=== PATIENT | female | born 1945 | race Caucasian/White ===

== ENCOUNTER 2019-11-04 10:33 | Outpatient (CLI) | payer MEDICARE, BC | END 2019-11-04 10:34 | disposition critical access hospital (66) | LOC: EMS 10:33 | PROVIDERS: ATTEND Surgery | DX: R07.9 Chest pain, unspecified (principal) | CPT/HCPCS: A0425; A0427 ==

== ENCOUNTER 2019-11-04 11:04 | Emergency (ER) | payer MEDICARE, BC ==
[2019-11-04 11:49] LABS: BASOPHILS # (AUTO) 0.1 10^3/uL (0.0-0.1); BASOPHILS % (AUTO) 1.1 %; EOSINOPHILS # (AUTO) 0.2 10^3/uL (0.0-0.7); EOSINOPHILS % (AUTO) 3.6 %; HGB - HEMOGLOBIN 13.1 g/dL (12.0-16.0); LYMPHOCYTES # (AUTO) 1.2 10^3/uL (1.5-3.5); MEAN CORPUSCULAR VOLUME 96.7 fL (81.0-99.0); MEAN PLATELET VOLUME 10.4 fL (7.9-10.8); MONOCYTES # (AUTO) 0.5 10^3/uL (0.0-1.0); MONOCYTES % (AUTO) 9.6 %; NEUTROPHILS # (AUTO) 3.6 10^3/uL (1.5-6.6); NEUTROPHILS % (AUTO) 64.3 %; PLT - PLATELET COUNT 161 10^3/uL (130-450); RED BLOOD COUNT 4.23 10^6/uL (4.20-5.40); RED CELL DISTRIBUTION WIDTH 12.7 % (12.0-15.0); WHITE BLOOD COUNT 5.5 x10^3/uL (4.8-10.8)
--- NOTE | 2019-11-04 11:54 | XRAY Report ---
Reason: Chest pain Procedure Date: 11/04/2019 Accession Number: [id number] / [id number] Procedure: XR - Chest 1 View X-Ray CPT Code: 32124 Final Report FULL RESULT: EXAM: CHEST RADIOGRAPHY EXAM DATE: 11/04/2019 11:43 AM. CLINICAL HISTORY: Chest pain. COMPARISON: CHEST 2 VIEW PA/LAT 06/01/2013 10:13 PM. TECHNIQUE: 1 view. FINDINGS: Lungs/Pleura: No focal opacities evident. No pleural effusion. No pneumothorax. Mediastinum: Within exam limitations, the cardiomediastinal contour is normal. Other: None. IMPRESSION: No focal consolidation. RADIA
[2019-11-04 12:03] LABS: ALBUMIN 3.5 g/dL (3.2-5.5); ALBUMIN/GLOBULIN RATIO 1.1 (1.0-2.2); BILIRUBIN,TOTAL 0.7 mg/dL (0.2-1.0); CREATININE 0.7 mg/dL (0.4-1.0); TOTAL PROTEIN 6.8 g/dL (6.7-8.2)
--- NOTE | 2019-11-04 12:39 | ED Physician Documentation ---
PD HPI CHEST PAIN - Stated complaint Stated Complaint: CP - Chief complaint Chief Complaint: Cardiac - History obtained from History obtained from: Patient - History of Present Illness Timing - onset: Today (Awoke at 0730; with intermittent brief non-radiating pain. Mild. Left chest; Its very brief, lasting seconds at a time. Nonexertional. Not associated with shortness of breath, back pain, jaw pain, or arm pain. There is no nausea, shortness of breath. She has had a cough recently but it is nonproductive and not severe. She traveled to [place] and got back a little over a week ago. No associated chest pain then, no leg pain or pedal edema. No history of DVT or PE. 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 Psych: None Musculoskeletal: Osteoarthritis Derm: None, Eczema, Rosacea - Past Surgical History Past Surgical History: Yes Ortho: Hip replacement, Knee replacement, Rotator cuff repair - Present Medications Home Medications: Ambulatory Orders Medication Instructions Recorded Confirmed Celecoxib [CeleBREX] 0 mg DAILY 11/04/19 11/04/19 Fluticasone [Flonase] 0 spray 11/04/19 - Allergies Allergies/Adverse Reactions: Allergies Allergy/AdvReac Type Severity Reaction Status Date / Time No Known Drug Allergies Allergy Verified 11/04/19 11:15 - Social History Does the pt smoke?: No Smoking Status: Never smoker Does the pt drink ETOH?: No Does the pt have substance abuse?: No - Immunizations Immunizations are current?: Yes - POLST Patient has POLST: No PD ED PE NORMAL - Vitals Vital signs reviewed: Yes - General General: Alert and oriented X 3, No acute distress - HEENT HEENT: PERRL, EOMI - Neck Neck: Supple, no meningeal sign, No bony TTP - Cardiac Cardiac: RRR (with occ ectopy), No murmur - Respiratory Respiratory: No respiratory distress, Clear bilaterally - Abdomen Abdomen: Normal bowel sounds, Soft, Non distended - Back Back: No CVA TTP, No spinal TTP - Derm Derm: Normal color, Warm and dry - Extremities Extremities: No edema, No calf tenderness / cord - Neuro Neuro: Alert and oriented X 3, Normal speech - Psych Psych: Normal mood, Normal affect Results - Vitals Vitals: Vital Signs - 24 hr 11/04/19 11/04/19 11:07 14:09 Temperature 36.8 C Heart Rate 58 L 56 L Respiratory 16 10 L Rate Blood Pressure 139/85 H 106/77 O2 Saturation 97 97 Oxygen O2 Source Room air - EKG (time done) 1116 Rate: Rate (enter#) (61) Rhythm: NSR (with pvcs) Davey: LAD Intervals: Normal AR QRS: Normal Ischemia: Normal ST segments. No: ST elevation c/w ischemia, ST depression Computer interpretation: Agree with computer - Labs Labs: Laboratory Tests 11/04/19 11/04/19 11/04/19 11:36 11:36 11:36 WBC 5.5 RBC 4.23 Hgb 13.1 Hct 40.9 MCV 96.7 MCH 31.0 MCHC 32.0 RDW 12.7 Plt Count 161 MPV 10.4 Neut # (Auto) 3.6 Lymph # (Auto) 1.2 L [place] # (Auto) 0.5 Eos # (Auto) 0.2 Baso # (Auto) 0.1 Absolute Nucleated RBC 0.00 Nucleated RBC % 0.0 D-Dimer Sodium 138 Potassium 3.6 Chloride 102 Carbon Dioxide 25 Anion Gap 11.0 BUN 14 Creatinine 0.7 Estimated GFR (MDRD) 82 L Glucose 105 H Calcium 9.0 Total Bilirubin 0.7 AST 16 ALT 13 Alkaline Phosphatase 46 Troponin I High Sens 5.3 Total Protein 6.8 Albumin 3.5 Globulin 3.3 Albumin/Globulin Ratio 1.1 Lipase 32 11/04/19 11/04/19 11:36 14:06 WBC RBC Hgb Hct MCV MCH MCHC RDW Plt Count MPV Neut # (Auto) Lymph # (Auto) [place] # (Auto) Eos # (Auto) Baso # (Auto) Absolute Nucleated RBC Nucleated RBC % D-Dimer < 200.0 L Sodium Potassium Chloride Carbon Dioxide Anion Gap BUN Creatinine Estimated GFR (MDRD) Glucose Calcium Total Bilirubin AST ALT Alkaline Phosphatase Troponin I High Sens 5.7 Total Protein Albumin Globulin Albumin/Globulin Ratio Lipase - Rads (name of study) 1v chest Radiology: EMP read contemporaneously (neg) PD MEDICAL DECISION MAKING - ED course ED course: This is a 74-year-old woman with a nonischemic EKG presents with intermittent brief nonexertional chest pain for the last 6 hours. It is happening frequently. She has PVCs, but she knows what those feel like and this is not similar to that. At the time of my evaluation a troponin has been done and negative as has a chest x-ray and other basic labs. Given the recent travel I will add on a d-dimer. We will perform a second troponin at a 2-hour interval. Departure - Departure Disposition: 01 Home, Self Care Clinical Impression: Atypical chest pain Condition: Good Record reviewed to determine appropriate education?: Yes Instructions: ED Chest Pain Atypical Unkn Cause Comments: We saw you today for chest pain, the pattern of it did not sound like your heart, your EKG was unremarkable except for PVCs which you already knew about. We did 2 high-sensitivity troponins a couple of hours apart and both were normal and a d-dimer was negative ruling out a blood clot. Return for new or worse symptoms, follow-up with your physician regardless for further evaluation and treatment.
[2019-11-04 14:09] VITALS: BP 106/77
== END 2019-11-04 15:00 | disposition home or self-care (01) ==
LOC: EDUNIT# → ED 11:04
DX: R07.89 Other chest pain (principal); I49.3 Ventricular premature depolarization; I10 Essential (primary) hypertension
CPT/HCPCS: 36415; 71045; 80053; 83690; 84484; 85025; 85379; 93005; 99284

== ENCOUNTER 2022-09-11 17:46 | Emergency (ER) | payer MEDICARE, BC ==
--- NOTE | 2022-09-11 18:53 | XRAY Report ---
PROCEDURE: Chest 1 View X-Ray INDICATIONS: fever s/p hip replacement TECHNIQUE: One view of the chest was acquired. COMPARISON: None. FINDINGS: Surgical changes and devices: 11/04/2019. Lungs and pleura: No pleural effusions or pneumothorax. Subtle ill-defined opacities are seen scatte red in right lower lung field. Mildly increased bronchovascular markings in bilateral hilar region ar e seen. Mediastinum: Mediastinal contours appear normal. Heart size is normal. Bones and chest wall: No suspicious bony lesions. Overlying soft tissues appear unremarkable. IMPRESSION: Finding is concerning for early developing right lower lobe infiltrates. No pleural effusion or pneum othorax. Reviewed by: Bryson Loaiza MD on 09/11/2022 6:51 PM PST Approved by: Bryson Loaiza MD on 09/11/2022 6:51 PM PST Station ID: [id number]
[2022-09-11 20:11] LABS: B. PARAPERTUSSIS- RESP PCR PAN NOT DETECTED; B. PERTUSSIS- RESP PCR PANEL NOT DETECTED; C. PNEUMONIAE- RESP PCR PANEL NOT DETECTED; CORONAVIRUS 229E-RESP PCR NOT DETECTED; CORONAVIRUS HKU1-RESP PCR NOT DETECTED; CORONAVIRUS NL63-RESP PCR NOT DETECTED; CORONAVIRUS OC43-RESP PCR NOT DETECTED; HUMAN METAPNEUMOVIRUS NOT DETECTED; INFLUENZA A- RESP PCR PANEL NOT DETECTED; INFLUENZA B - RESP PCR PANEL NOT DETECTED; M. PNEUMONIAE- RESP PCR PANEL NOT DETECTED; PARAINFLUENZA VIRUS 1 NOT DETECTED; PARAINFLUENZA VIRUS 2 NOT DETECTED; PARAINFLUENZA VIRUS 3 NOT DETECTED; PARAINFLUENZA VIRUS 4 NOT DETECTED; RHINOVIRUS/ENTEROVIRUS NOT DETECTED; RSV- RESP PCR PANEL NOT DETECTED; SARS-CoV-2 -RESP PCR PANEL NOT DETECTED
--- NOTE | 2022-09-11 20:32 | ED Physician Documentation ---
History of Present Illness - Stated complaint Stated Complaint: FEVER,CHILLS,HIP REPLACEMENT FRIDAY - Chief complaint Chief Complaint: General - History obtained from History obtained from: Patient - History of Present Illness Timing: Today Pain level max: 3 Pain level now: 3 - Additonal information Additional information: 76-year-old female presents to the emergency department with a fever today at home. She states that she had a left hip replacement done at [facility] 2 days ago. She talk to her orthopedic surgeon who told her to go to the emergency department for evaluation. No urinary symptoms. No abdominal pain. She has not noticed any redness to the surgical site. No cough. No congestion. 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 Psych: None Musculoskeletal: Osteoarthritis Derm: None, Eczema, Rosacea - Past Surgical History Past Surgical History: Yes Ortho: Hip replacement, Knee replacement, Rotator cuff repair - Present Medications Home Medications: Ambulatory Orders Medication Instructions Recorded Confirmed Amox/Clav 875/125 [Augmentin] 1 tab PO Q12H #20 tablet 09/11/22 Azithromycin 250 mg PO DAILY #4 tablet 09/11/22 - Allergies Allergies/Adverse Reactions: Allergies Allergy/AdvReac Type Severity Reaction Status Date / Time No Known Drug Allergies Allergy Verified 11/04/19 11:15 - Social History Does the pt smoke?: No Smoking Status: Never smoker Does the pt drink ETOH?: No Does the pt have substance abuse?: No - Immunizations Immunizations are current?: Yes - POLST Patient has POLST: No PD ED PE NORMAL - Vitals Vital signs reviewed: Yes - General General: Alert and oriented X 3, No acute distress, Well developed/nourished - HEENT HEENT: PERRL, Moist mucous membranes - Neck Neck: Supple, no meningeal sign - Cardiac Cardiac: RRR, Strong equal pulses - Respiratory Respiratory: No respiratory distress, Clear bilaterally - Abdomen Abdomen: Soft, Non tender, Non distended - Back Back: No CVA TTP, No spinal TTP - Derm Derm: Warm and dry, No rash - Extremities Extremities: No edema, Other (L hip - The incision is clean, dry, intact without signs of infection.) - Neuro Neuro: Alert and oriented X 3 - Psych Psych: Normal mood, Normal affect Results - Vitals Vitals: Vital Signs - 24 hr 09/11/22 09/11/22 09/11/22 17:55 19:56 21:16 Temperature 38.3 C H 37.6 C Heart Rate 110 H 102 H 88 Respiratory 14 20 16 Rate Blood Pressure 131/73 H 146/86 H 128/72 O2 Saturation 95 100 99 Oxygen O2 Source Room air - Labs Labs: Laboratory Tests 09/11/22 19:18 Nasal Adenovirus (PCR) NOT DETECTED Nasal B. parapertussis DNA (PCR) NOT DETECTED Nasal Coronavir 229E PCR NOT DETECTED Nasal Coronavir HKU1 PCR NOT DETECTED Nasal Coronavir NL63 PCR NOT DETECTED Nasal Coronavir OC43 PCR NOT DETECTED Nasal Enterovir/Rhinovir PCR NOT DETECTED Nasal Influenza B PCR NOT DETECTED Nasal Influenza A PCR NOT DETECTED Nasal Parainfluen 1 PCR NOT DETECTED Nasal Parainfluen 2 PCR NOT DETECTED Nasal Parainfluen 3 PCR NOT DETECTED Nasal Parainfluen 4 PCR NOT DETECTED Nasal RSV (PCR) NOT DETECTED Nasal B.pertussis DNA PCR NOT DETECTED Nasal C.pneumoniae (PCR) NOT DETECTED Kyle Human Metapneumo PCR NOT DETECTED Nasal M.pneumoniae (PCR) NOT DETECTED Nasal SARS-CoV-2 (PCR) NOT DETECTED - Rads (name of study) cxr Radiology: Final report received, EMP read contemporaneously, See rad report PD MEDICAL DECISION MAKING - ED course Complexity details: reviewed results, re-evaluated patient, considered differential, d/w patient ED course: 76-year-old female with what appears to be a right-sided pneumonia on chest x- ray. We will place on oral antibiotics. She is unable to give a urine sample here, however as she is being covered with antibiotics we will not pursue this at this time. Patient is well-appearing, nontoxic. No CVA tenderness. Her i ncision is clean, dry, intact without signs of infection. Patient counseled regarding signs and symptoms for which I believe and urgent re-evaluation would be necessary. Patient with good understanding of and agreement to plan and is comfortable going home at this time This document was made in part using voice recognition software. While efforts are made to proofread this document, sound alike and grammatical errors may occur. Departure - Departure Disposition: 01 Home, Self Care Clinical Impression: Pneumonia Qualifiers: Pneumonia type: due to unspecified organism Laterality: right Lung location: lower lobe of lung Qualified Code(s): J18.9 - Pneumonia, unspecified organism Condition: Good Instructions: ED Pneumonia Adult Follow-Up: Collette Quarles MD [Primary Care Provider] - Within 1 week Prescriptions: Amox/Clav 875/125 [Augmentin] 1 tab PO Q12H #20 tablet Azithromycin 250 mg PO DAILY #4 tablet Comments: Your prescriptions were sent to [facility] in [place]. Please take all antibiotics until gone. Please follow-up with your doctor for further care. It appears that you have a right-sided pneumonia on your chest x-ray tonight. Discharge Date/Time: 09/11/22 21:16
[2022-09-11] MEDS ORDERED: AMOX/CLAV 875 MG/125 MG TABLET PO STA (20:55)
[2022-09-11] MEDS ORDERED: AZITHROMYCIN 250 MG TABLET PO STA (20:55)
[2022-09-11 21:16] VITALS: BP 128/72
== END 2022-09-11 21:16 | disposition home or self-care (01) ==
LOC: ED 17:46
DX: J18.9 Pneumonia, unspecified organism (principal); Z20.822 Contact with and (suspected) exposure to COVID-19
CPT/HCPCS: 71045; 87633; 99284; A9270

== ENCOUNTER 2023-02-01 07:00 | Outpatient (CLI) | payer MEDICARE, BC ==
--- NOTE | 2023-02-01 12:18 | XRAY Report ---
PROCEDURE: Chest 2 View X-Ray INDICATIONS: CHEST CONGESTION TECHNIQUE: 2 views of the chest were acquired. COMPARISON: Chest x-ray 09/11/2022 FINDINGS: Surgical changes and devices: None. Lungs and pleura: Mild opacity with blunting of the left costophrenic angle is present in the left b ase. Mediastinum: Mediastinal contours appear normal. Heart size is normal. Bones and chest wall: No suspicious bony lesions. Overlying soft tissues appear unremarkable. IMPRESSION: Minimal left effusion. Reviewed by: Katlin Cassidy MD on 02/01/2023 12:17 PM PDT Approved by: Katlin Cassidy MD on 02/01/2023 12:17 PM PDT Station ID: [id number]
== END 2023-02-01 23:59 | disposition home or self-care (01) ==
LOC: DI.S 07:00
PROVIDERS: ATTEND Physician Assistant Medical
DX: J90 Pleural effusion, not elsewhere classified (principal)